=== PATIENT | female | born 1995 | race Caucasian/White ===

== ENCOUNTER 2020-01-26 13:51 | Outpatient (CLI) | payer OTHER, SELFPAY ==
--- NOTE | ~2020-01-26 | US_ITS ---
EXAMINATION: US OB <=14 wk fetus w TV DATE: 01/26/2020 15:11 INDICATION: Screening hemorrhage TECHNIQUE: Real-time transabdominal and transvaginal obstetric ultrasound. FINDINGS: No prior studies for comparison. The uterus measures 12.1 x 8.1 x 6.4 cm. There is an intrauterine gestational sac, with pole id entified. The crown rump length measures 2.98 cm, which correlates with a estimated gestational age of 9 weeks 6 days. heart tones are identified measuring 176 BPM. There is a subchorionic hemo rrhage measuring 2.3 x 1.2 x 1 cm IMPRESSION: 1. SL IUP with an EGA of 9 weeks, 6 days (EDC by current ultrasound of 08/24/2020). 2: Moderate size subchorionic hemorrhage. Reviewed, dictated and finalized at location A. IMPRESSION: 1. SL IUP with an EGA of 9 weeks, 6 days (EDC by current ultrasound of 08/24/19). 2: Moderate size subchorionic hemorrhage.
== END 2020-01-26 13:52 | disposition home or self-care (01) ==
PROVIDERS: Visit Provider Obstetrics & Gynecology
DX: O46.91 Antepartum hemorrhage, unspecified, first trimester (principal); Z3A.09 9 weeks gestation of pregnancy
CPT/HCPCS: 76801; 76817

== ENCOUNTER 2020-03-06 12:51 | Outpatient (CLI) | payer OTHER, SELFPAY ==
--- NOTE | ~2020-03-06 | US_ITS ---
EXAMINATION: US OB limited DATE: 03/06/2020 13:54 INDICATION: Subchorionic hemorrhage TECHNIQUE: Real-time ultrasound of the pelvis was performed. The interpreting radiologist was not pre sent for the study. COMPARISON: 01/26/2020 FINDINGS: There is a single living fetus in vertex presentation. The placenta is posterior with caudal margin 4.2 cm from the internal cervical os. Cervical length measures approximately 4.1 cm. heart rate is 152 beats per minute (bpm). The amniotic fluid volume is subjectively normal. IMPRESSION: 1. Single living fetus in vertex presentation with heart rate of 152 bpm. 2. Normal posterior placenta. No evident subchorionic hemorrhage. Reviewed, dictated and finalized at location A.
== END 2020-03-06 12:52 | disposition home or self-care (01) ==
PROVIDERS: Visit Provider Obstetrics & Gynecology
DX: O36.8910 Maternal care for other specified fetal problems, first trimester, not applicable or unspecified (principal); Z3A.00 Weeks of gestation of pregnancy not specified
CPT/HCPCS: 76815

== ENCOUNTER 2020-10-08 17:48 | Emergency (ER) | payer SELFPAY ==
[2020-10-08 18:57] VITALS: BP 101/67; PULSE 89; RESP 18; TEMP 36.4; O2SAT 98
--- NOTE | 2020-10-08 19:40 | PC.NURSE ---
Pt presents to ED with with complaints of vaginal discomfort and RUQ pain. Pt refuses pain medication at this time. 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 EDMD presented to bedside and pelvic exam performed with nurse mortgage or loan underwriter to witness and at bedside; pt tolerated well. Large amount of vaginal discharge noted with no abnormal bleeding noted. Pt alert and oriented x4 with no further complaints or concerns voiced.
--- NOTE | 2020-10-08 19:40 | ED.FEMALEGU ---
HPI - Female Genitourinary General Chief complaint: Urogenital-Female Stated complaint: uterine prolapse post- Time Seen by Provider: 10/08/20 19:23 History of Present Illness HPI Narrative: Vaginal delivery 6 weeks ago. Yesterday noted something protruding from the posterior portion of the vagina. Mildly uncomfortable. Called OB's office and was told to come to the ED. Additionally she has intermittent RUQ pain for several days. Associated with nausea. No obvious inciting factors. No pain at this time. Related Data Home Medications Medication Instructions Recorded Confirmed No Home Medications 10/08/20 10/08/20 Allergies Allergy/AdvReac Type Severity Reaction Status Date / Time No Known Allergies Allergy Verified 10/08/20 19:01 Review of Systems Review of Systems: All systems reviewed & are unremarkable except as noted in HPI and below Constitutional: Constitutional: Denies chills Cardiovascular: Cardiovascular: Denies chest pain Respiratory: Respiratory: Denies dyspnea Gastrointestinal: Gastrointestinal: Reports abdominal pain, Denies constipation, Denies diarrhea, Reports nausea and Denies vomiting Genitourinary: Genitourinary: Denies abnormal vaginal bleeding, Denies hematuria, Denies nocturia and Denies dysuria Musculoskeletal: Musculoskeletal: Denies back pain Neurologic: Reports system reviewed and no additional complaints, except as documented PMFSH Past Medical History Medical History (Updated 10/09/20 @ 14:27 by Robert Pryor MD) Vaginal delivery Social History Social History Gender identity (if verbalized by the patient): Female Exam Const: General: healthy appearing, no acute distress and alert Orientation/consciousness: patient oriented x3 HENMT: Head: normal to inspection Neck: Neck: normal visual inspection Resp: Effort & Inspection: normal respiratory effort Auscultation: clear to auscultation bilaterally, no rales, no rhonchi and no wheezes Cardio: Jugular venous distension: no JVD Rate: regular rate Rhythm: regular rhythm Heart sounds: no murmurs GI: Inspection: non-distended GI Palp: Yes Soft to palpation and No Tenderness to palpation present (GI) : Speculum Exam - Vagina: normal vaginal discharge Other: 1x2 cm fleshy mass anchored near posterior aspect of the labia minora. Likely hypertrophied tissue healing from the trauma of child Skin: General skin exam: normal color Neuro: General: patient oriented x3 and moves all extremities Speech: normal speech Extrem: General: no edema Psych: Appearance: well kempt Affect: normal affect Course Vital Signs Vital signs: Vital Signs Temperature 36.4 C L 10/08/20 18:57 Pulse Rate 89 10/08/20 18:57 Respiratory Rate 18 10/08/20 18:57 Blood Pressure 101/67 10/08/20 18:57 Pulse Oximetry 98 10/08/20 18:57 Temperature 36.9 C 10/08/20 21:13 Pulse Rate 74 10/08/20 21:13 Respiratory Rate 20 10/08/20 21:13 Blood Pressure 95/69 L 10/08/20 21:13 Pulse Oximetry 100 10/08/20 21:13 MDM - Female Genitourinary MDM Narrative Medical decision making narrative: Pelvic exam finding discussed with Dr. Haines. Sounds like relatively normal exam following child . She can follow-up with them in clinic this week. Labs reassuring. She declined CT and asked to be discharged. Differential Diagnosis Differential diagnosis: Likely urinary tract infection and other (bladder prolapse, cholecytitis, GERD) Medical Records Attestation: I reviewed the patient's medical records. Lab Data Attestation: I reviewed the patient's lab results. Result diagrams: 10/08/20 19:54 10/08/20 19:54 Labs: Lab Results 10/08/20 10/08/20 10/08/20 Range/Units 19:54 19:54 20:18 WBC 7.5 (4.5-10.0) K/mm3 RBC 4.23 (4.2-5.4) M/mm3 Hgb 12.5 (12.0-15.0) g/dL Hct 38.7 (37.0-47.0) % MCV 91.5 (80-100) fl MCH 29.6 (26-34) pg MCHC 32.3
--- NOTE | 2020-10-08 19:50 | PC.NURSE ---
Lab draws completed.
--- NOTE | 2020-10-08 19:59 | PC.NURSE ---
Pt ambulated in soliz to provide urine specimen.
[2020-10-08 20:00] LABS: Basophils Percent Auto 0.4 % (0.2-1.2); Eosinophils Absolute Auto 0.3 K/mm3 (0-0.3); Eosinophils Percent Auto 3.3 % (0-4.4); Hematocrit 38.7 % (37.0-47.0); Hemoglobin 12.5 g/dL (12.0-15.0); Immature Granulocyte Absolute 0.02 K/mm3 (0.00-0.031); Immature Granulocyte Percent A 0.3 % (0-0.5); Mean Corpuscular HGB Conc 32.3 g/dl (32-36); Mean Corpuscular Hemoglobin 29.6 pg (26-34); Mean Corpuscular Volume 91.5 fl (80-100); Mean Platelet Volume 9.4 fl (7.4-10.4); Monocytes Absolute Auto 0.6 K/mm3 (0.1-0.6); Monocytes Percent Auto 8.5 % (2.6-8.5); Neutrophils Absolute Auto 4.5 K/mm3 (1.3-6.7); Neutrophils Percent Auto 59.5 % (45.5-73.1); Platelet Count Result 241 k/mm3 (150-375); Red Blood Count 4.23 M/mm3 (4.2-5.4); Red Cell Distribution Width 12.8 % (11.5-14.5); White Blood Count 7.5 K/mm3 (4.5-10.0)
[2020-10-08 20:15] LABS: Alanine Aminotransferase 18 U/L (4-35); Alkaline Phosphatase 94 U/L (38-126); Anion Gap 4 mmol/L (8-16); Aspartate Amino Transferase 23 U/L (14-36); Bilirubin,Total 0.1 mg/dL (0.2-1.3); Blood Urea Nitrogen 15 mg/dL (7-17); Calcium 8.9 mg/dL (8.4-10.2); Carbon Dioxide 31 mmol/L (22-30); Chloride 105 mmol/L (98-107); Estimated CRCL calculation 109 ml/min; Estimated Glomerular Filt Rate > 60; Glucose 104 mg/dL (65-105); Lipase 91 U/L (23-300); Potassium 4.1 mmol/L (3.4-5.0); Sodium 140 mmol/L (137-145)
--- NOTE | 2020-10-08 20:30 | PC.NURSE ---
Pt resting on cart with no complaints or concerns voiced at this time. Pt and aware of poc and advised to press call button for assistance.
[2020-10-08 20:35] LABS: Add Urine Microscopic? NO; Appearance Urine Clear (Clear); Bilirubin Urine Negative (Negative); Blood Urine Negative (Negative); Color Urine Yellow (Yellow); Glucose Urine UA Negative (Negative); Ketones Urine Negative (Negative); Leukocyte Esterase Ur Negative LEU/UL (Negative); Nitrate Urine Negative (Negative); Protein Urine Negative (Negative); Specific Grav Ur 1.023 (1.001-1.035); Urobilinogen Urine Negative mg/dL (<2.0)
--- NOTE | 2020-10-08 20:56 | PC.NURSE ---
EDMD to bedside to updated pt and on results. All questions and concerns addressed. Pt advised to follow up with PCP and pt voices her understanding.
--- NOTE | 2020-10-08 21:01 | PC.NURSE ---
Pt dc home alert, stable and in no obvious distress. Able to ambulate from ED without difficulty.
[2020-10-08 21:13] VITALS: BP 95/69; PULSE 74; RESP 20; TEMP 36.9; O2SAT 100
== END 2020-10-08 21:04 | disposition home or self-care (01) ==
PROVIDERS: Emergency Provider Emergency Medicine; PCP Obstetrics & Gynecology
DX: O90.89 Other complications of the puerperium, not elsewhere classified (principal); N89.9 Noninflammatory disorder of vagina, unspecified; R10.11 Right upper quadrant pain
CPT/HCPCS: 36415; 80053; 81003; 83690; 85025; 99283